=== PATIENT | male | born 1950 | race Caucasian/White ===

== ENCOUNTER → 2016-07-09 | Day surgery (SDC) | payer OTHER ==
[~2016-07-09] MED LIST: PICC LINE 8 ML FLUSH PROTOCOL IVPUSH PRN
== END | disposition home or self-care (01) ==
LOC: JRADIR 13:46
PROVIDERS: ATTEND Internal Medicine
PROC: 02HV33Z Insertion of Infusion Device into Superior Vena Cava, Percutaneous Approach (ICD-10-PCS; principal; 2016-07-09)
PROC: B518YZA Fluoroscopy of Superior Vena Cava using Other Contrast, Guidance (ICD-10-PCS; 2016-07-09)
PROC: B51MYZA Fluoroscopy of Right Upper Extremity Veins using Other Contrast, Guidance (ICD-10-PCS; 2016-07-09)
DX: A49.02 Methicillin resistant Staphylococcus aureus infection, unspecified site (principal)
CPT/HCPCS: 36569; 75820-TC; 77001-TC; C1751

== ENCOUNTER 2017-05-19 18:19 | Emergency (ER) | payer OTHER ==
[2017-05-19 19:05] VITALS: TEMP 98.5; BMI 23.8
[2017-05-19] MEDS ORDERED: ASPIRIN 81 MG CHEWABLE TABLETS PO ONE (19:15)
[2017-05-19 19:34] LABS: EOS % 3.3 % (0-4.5); HEMOGLOBIN 12.2 GM/dL (11.7-16.9); LYMPH % 24.9 % (8-40); MCH 30.9 pg (25.7-33.7); MCHC 34.8 g/dl (32.0-35.9); MEAN CELL VOLUME 88.8 fl (80-96); MEAN PLT VOLUME 9.2 fl (7.5-11.1); MONO % 5.3 % (3.8-10.2); NEUT % 65.5 % (42.8-82.8); PLATELET COUNT 166 K/MM3 (134-434); RBC 3.94 M/mm3 (4.00-5.60); WHITE BLOOD COUNT 8.9 K/mm3 (4.0-10.0)
[2017-05-19 19:50] LABS: INR 1.12 (0.82-1.09); PROTHROMBIN TIME (PATIENT) 12.7 SEC (9.98-11.88)
[2017-05-19] MEDS ORDERED: morphine CARPU-JECT 2 MG/1 ML DISP.SYRIN IVPUSH ONE (20:10)
--- NOTE | 2017-05-19 20:12 | PDOC ---
Attending Attestation - HPI HPI: 05/19/17 20:26 The patient is a 67 year old male with a significant PMH of CVA (with residual left sided deficits, on Plavix and Aspirin), fall in 07/2016, aphasia, MRSA, left LLE amputation, COPD, HTN, and hyperlipidemia who presents to the emergency department via EMS from [facility] with nasal bridge lacerations and neck pain s/p fall prior to arrival. The patients lacerations are located bilaterally along the lateral aspects of the nasal bridge. He reports falling over while sitting in his wheelchair after overextending himself and couldnt not get himself back in the wheelchair for about 30 minutes before being found. The patient denies LOC. Allergies: NKA <Kale Nava - Last Filed: 05/19/17 20:52> - Resident Resident Name: César Ascencio - ED Attending Attestation I have performed the following: I have examined & evaluated the patient, The case was reviewed & discussed with the resident, I agree w/resident's findings & plan, Exceptions are as noted - Physicial Exam PE: 05/19/17 20:13 *Physical Exam General Appearance: Yes: Appropriately Dressed. No: Apparent Distress, Intoxicated HEENT: positive: EOMI, ERIC, Normal ENT Inspection,lacerations to face,in between eyebrows above bridge of nose Normal Voice, TMs Normal, Pharynx Normal. negative: Pale Conjunctivae, Photophobia, Scleral Icterus (R), Scleral Icterus (L) Neck: positive: Trachea midline, Normal Thyroid, Supple. negative: Tender, Rigid, Carotid bruit, Stridor, Lymphadenopathy (R), Lymphadenopathy (L), Thyromegaly Respiratory/Chest: positive: Lungs Clear, Normal Breath Sounds. negative: Chest Tender, Respiratory Distress, Accessory Muscle Use, Labored Respiration, RES, Crackles, Rales, Rhonchi, Stridor, Wheezing, Dullness Cardiovascular: positive: Regular Rhythm, Regular Rate, S1, S2. negative: Edema , JVD, Murmur, Bradycardia, Tachycardia Vascular Pulses: Dorsalis-Pedis (R): 2+, Doralis-Pedis (L): 2+ Gastrointestinal/Abdominal: positive: Normal Bowel Sounds, Flat, Soft. negative : Tender, Organomegaly, Pulsatile Mass, Increased Bowel Sounds, Decreased BS, Distended, Guarding, Rebound, Hernia, Hepatomegaly, Spleenomegaly Lymphatic: negative: Adenopathy, Tenderness Musculoskeletal: positive: Normal Inspection. negative: CVA Tenderness, Decreased Range of Motion Extremity: positive: Normal Capillary Refill, left extremity BKA Normal Range of Motion, Pelvis Stable. negative: Tender, Pedal Edema, Swelling, Erythema Integumentary: positive: Normal Color, Dry, Warm. 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 negative: EOM Palsy, Facial Droop, Sensory Deficit - Medical Decision Making 05/19/17 23:25 Pt treated and released <Salomon Sosa - Last Filed: 05/19/17 23:25>
[2017-05-19] MEDS ORDERED: morphine SULFATE 4 MG/ML VIAL ONE (20:17)
[2017-05-19 20:38] VITALS: BP 95/68; PULSE 60
[2017-05-19] MEDS ORDERED: DIPHTH,PERTUSS(ACELL),TET 0.5 ML DISP.SYRIN IM ONE (20:44)
--- NOTE | 2017-05-19 20:44 | PDOC ---
History of Present Illness - General Chief Complaint: Injury Stated Complaint: FALL Time Seen by Provider: 05/19/17 19:03 History Source: Patient Exam Limitations: No Limitations - History of Present Illness Initial Comments: 05/19/17 20:38 Patient is a 67M with history of CVA with left sided weakness and aphasia, fibrous abdominal tumor, COPD, chronic hypotension, carotid artery stenosis, taking ASA 81 and plavix here today complaining a head trauma after a fall. He states that he was leaning out from his wheelchair when he lost his balance and fell forward hitting his head. He denies LOC. He is complaining of associated neck pain, which the patient states is due to being immobile for about a half hour after he fell before his aide found him. Denies chest pain, back pain, abdominal pain, shortness of breath. Coming from [facility]. Past History - Past Medical History Allergies/Adverse Reactions: Allergies Allergy/AdvReac Type Severity Reaction Status Date / Time No Known Allergies Allergy Verified 05/19/17 19:05 Home Medications: Ambulatory Orders Acetaminophen [Tylenol] 650 mg PO PRN PRN 08/14/16 Ammonium Lactate Cream [Lac-Hydrin] 1 applic TP HS 08/14/16 Aspirin [ASA -] 81 mg PO DAILY 08/14/16 Cholecalciferol (Vitamin D3) [Vitamin D3] 5,000 unit PO MOWEFR 08/14/16 Citalopram Hydrobromide [Celexa -] 20 mg PO HS 08/14/16 Clopidogrel Bisulfate [Plavix -] 75 mg PO DAILY 08/14/16 Famotidine 20 mg PO Q12H 08/14/16 Gabapentin 600 mg PO TID 08/14/16 Hypromellose 0.5% Opth Soln [Artificial Tears] 1 drop OD QID 08/14/16 Melatonin 5 mg PO HS 08/14/16 Polyethylene Glycol 3350 [Miralax (For Daily Use) -] 17 gm PO DAILY 08/14/16 Silver Sulfadiazine [Silvadene] 1 applic TP DAILY 08/14/16 Simvastatin [Zocor -] 40 mg PO HS 08/14/16 Tramadol HCl 50 mg PO TID 05/19/17 Cardiac Disorders: Yes CVA: Yes COPD: Yes GI Disorders: Yes (GERD) HTN: Yes Hypercholesterolemia: Yes Other medical history: LEFT HIP HEMIPLEGIA AND HEMIPARESIS - Suicide/Smoking/Psychosocial Hx Smoking History: Never smoked Have you smoked in the past 12 months: No If you are a former smoker, when did you quit?: 2016 Information on smoking cessation initiated: No Hx Alcohol Use: No Drug/Substance Use Hx: No Substance Use Type: None Review of Systems - Review of Systems Comments:: 05/19/17 20:48 GENERAL/CONSTITUTIONAL: No fever or chills. No weakness. HEAD, EYES, EARS, NOSE AND THROAT: No change in vision. No ear pain or discharge. No sore throat. CARDIOVASCULAR: No chest pain or shortness of breath RESPIRATORY: No cough, wheezing, or hemoptysis. GASTROINTESTINAL: No nausea, vomiting, diarrhea or constipation. GENITOURINARY: No dysuria, frequency, or change in urination. MUSCULOSKELETAL: No joint or muscle swelling or pain. Positive for neck pain. Negative for back pain. SKIN: No rash NEUROLOGIC: Positive for headache. Negative for vertigo, loss of consciousness, or change in strength/sensation. ALLERGIC/IMMUNOLOGIC: No hives or skin allergy. *Physical Exam - Vital Signs Last Vital Signs Temp Pulse Resp BP Pulse Ox 98.5 F 60 20 95/68 98 05/19/17 18:35 05/19/17 20:37 05/19/17 20:37 05/19/17 20:37 05/19/17 20:37 - Physical Exam Comments: 05/19/17 20:49 GENERAL: Awake, alert, and fully oriented, in no acute distress HEAD: Ecchymosis over left eye, 2cm laceration with bleeding above medial aspect of right eye, 1cm above medial aspect of left eye EYES: PERRLA, EOMI, sclera anicteric, conjunctiva clear ENT: Auricles normal inspection, hearing grossly normal, nares patent, oropharynx clear without exudates. Moist mucosa NECK: Normal ROM, supple, no lymphadenopathy, JVD, or masses. +midline tenderness, no step offs/deformities BACK: No signs of trauma, nontender midline LUNGS: No distress, speaks full sentences, clear to auscultation bilaterally HEART: Regular rate and rhythm, normal S1 and S2, no murmurs, rubs or gallops, peripheral pulses normal and equal bilaterally. ABDOMEN: Soft, nontender, normoactive bowel sounds. No guarding, no rebound. No masses EXTREMITIES: Left below the knee amputation, Normal range of motion, no edema. No clubbing or cyanosis. NEUROLOGICAL: Cranial nerves II through XII grossly intact. Normal speech, no focal sensorimotor deficits SKIN: Warm, Dry, normal turgor, no rashes or lesions noted. Procedures - Laceration/Wound Repair Face Wound Length: 2.6 to 5.0 cm Wound Explored: clean Wound's Depth, Shape: superficial Irrigated w/ Saline: Yes Anesthesia: 1% Lidocaine Amount of Anesthetic (ccs): 2 Suture Size/Type: 5:0 Number of Sutures: 6 ED Treatment Course - LABORATORY CBC & Chemistry Diagram: 05/19/17 19:25 05/19/17 20:24 - ADDITIONAL ORDERS Additional order review: Laboratory Results 05/19/17 05/19/17 19:25 19:25 PT with INR 12.70 H INR 1.12 Sodium Cancelled Potassium Cancelled Chloride Cancelled Carbon Dioxide Cancelled Anion Gap Cancelled BUN Cancelled Creatinine Cancelled Creat Clearance w eGFR Cancelled Random Glucose Cancelled Calcium Cancelled Magnesium Cancelled Total Bilirubin Cancelled AST Cancelled ALT Cancelled Alkaline Phosphatase Cancelled Creatine Kinase Cancelled Troponin I Cancelled Total Protein Cancelled Albumin Cancelled 05/19/17 19:25 RBC 3.94 L MCV 88.8 MCHC 34.8 RDW 13.0 MPV 9.2 Neutrophils % 65.5 Lymphocytes % 24.9 Monocytes % 5.3 Eosinophils % 3.3 Basophils % 1.0 - RADIOLOGY Radiology Studies Ordered: Category Date Time Status CERVICAL SPINE CT W/O CONTR [CT] Stat CT Scan 05/19/17 19:[address] W/O CONTRAST [CT] Stat CT Scan 05/19/17 19:[address] WITHOUT CONTRAST [CT] Stat CT Scan 05/19/17 19:16 Ordered CXRPORT [CHEST X-RAY PORTABLE*] [RAD] Stat Radiology 05/19/17 19:17 Completed - Medications Given in the ED: ED Medications Discontinued Medications Generic Name Dose Route Start Last Admin Trade Name Freq PRN Reason Stop Dose Admin Aspirin 162 mg 05/19/17 19:15 05/19/17 20:26 Asa - PO 05/19/17 19:16 Not Given ONCE ONE Morphine Sulfate 2 mg 05/19/17 20:10 05/19/17 20:26 Morphine Injection - IVPUSH 05/19/17 20:11 2 mg ONCE ONE Administration Medical Decision Making - Medical Decision Making 05/19/17 20:54 Patient is 67M here today with fall, on aspirin and plavix. Vital signs stable and normal. C-collar placed. Lacerations repaired. Will workup with cardiac labs , ekg, cxr, head, cervical and facial bones CT. EKG shows normal sinus rhythm with one PVC. No st elevations/depressions. Normal PA/QRS/QTc intervals. No significant t wave abnormalities. Normal axis. 05/19/17 20:56 CXR shows no acute cardiopulmonary process. 05/19/17 22:07 Laboratory Tests 05/19/17 05/19/17 05/19/17 19:25 20:24 20:24 WBC 8.9 Hgb 12.2 Hct 35.0 L Plt Count 166 D BUN 8 D Creatinine 0.6 L D Creatine Kinase 131 Troponin I 0.03 HIV 1&2 Antibody Screen 05/19/17 20:24 WBC Hgb Hct Plt Count BUN Creatinine Creatine Kinase Troponin I HIV 1&2 Antibody Screen Negative CBC normal. HIV negative. CMP reassuring. Troponin detectable at 0.03, below threshold. CTs pending. 05/19/17 22:48 CT head, neck and facial boens negative. Hemostasis has been difficult to achieve. Will watch for another hour to confirm bleeding has stopped. Patient tolerating PO, says he feels better. 05/20/17 00:32 Hemostasis confirmed, discharged. *DC/Admit/Observation/Transfer Diagnosis at time of Disposition: Head injury due to trauma, Fall, Laceration - Discharge Dispostion Disposition: HOME Condition at time of disposition: Good Admit: No - Referrals - Patient Instructions Printed Discharge Instructions: DI for Suture Removal, DI for Closed Head Injury Additional Instructions: You were seen today in the ED for head trauma after a fall. Please return if you have any new, worsening, or concerning symptoms. Please return in 5-7 days to have your sutures removed, you may also have them removed by any other physician. - Post Discharge Activity
[2017-05-19 21:11] LABS: ALBUMIN 3.2 g/dl (3.4-5.0); ALK PHOS 96 U/L (45-117); ANION GAP 7 (8-16); BILIRUBIN,TOTAL 0.2 mg/dL (0.2-1.0); BLOOD UREA NITROGEN 8 mg/dL (7-18); CALCIUM 8.1 mg/dL (8.5-10.1); CHLORIDE 105 mmol/L (98-107); CO2 29 mmol/L (21-32); CREATININE 0.6 mg/dL (0.7-1.3); GLUCOSE,RANDOM 93 mg/dL (74-106); POTASSIUM 3.4 mmol/L (3.5-5.1); SGOT/AST 12 U/L (15-37); SGPT/ALT 13 U/L (12-78); SODIUM 141 mmol/L (136-145); TOT PROT 6.3 g/dl (6.4-8.2)
--- NOTE | 2017-05-20 11:05 | EKG ---
Test Reason : Blood Pressure : / mmHG Vent. Rate : 060 BPM Atrial Rate : 060 BPM P-R Int : 150 ms QRS Dur : 082 ms QT Int : 456 ms P-R-T Axes : 040 061 051 degrees QTc Int : 456 ms SINUS RHYTHM WITH OCCASIONAL PREMATURE VENTRICULAR COMPLEXES OTHERWISE NORMAL ECG WHEN COMPARED WITH ECG OF 14-AUG-2016 16:28, PREMATURE VENTRICULAR COMPLEXES ARE NOW PRESENT Confirmed by RUDDY TY, BRIT ([id number]) on 05/20/2017 11:05:02 AM Referred By: TORITO Confirmed By:BRIT FOX MD
== END 2017-05-20 00:39 | disposition home or self-care (01) ==
LOC: JER 18:19
PROC: 0HQ0XZZ Repair Scalp Skin, External Approach (ICD-10-PCS; principal; 2017-05-19)
PROC: 3E0234Z Introduction of Serum, Toxoid and Vaccine into Muscle, Percutaneous Approach (ICD-10-PCS; 2017-05-19)
PROC: 3E033NZ Introduction of Analgesics, Hypnotics, Sedatives into Peripheral Vein, Percutaneous Approach (ICD-10-PCS; 2017-05-19)
DX: S01.91XA Laceration without foreign body of unspecified part of head, initial encounter (principal); S09.90XA Unspecified injury of head, initial encounter; W07.XXXA Fall from chair, initial encounter; Y93.89 Activity, other specified; Y92.9 Unspecified place or not applicable
CPT/HCPCS: 36415; 70450-TC; 70486-TC; 71045-TC-FY; 72125-TC; 80053; 82550; 84484; 85025; 85610; 87389; 90715; 93005; 93010; 99285-25